=== PATIENT | female | born 1940 | race Caucasian/White ===

== ENCOUNTER 2017-11-05 16:15 | Inpatient (IN) | payer OTHER ==
[~2017-11-05] VITALS: Ht 152.4 cm; Wt 51.7 kg
--- NOTE | 2017-11-05 16:20 | NUR ---
NAZIA FROM DR TYLER'S OFFICE WITH CC OF RUQ ABDOMINAL PAIN X 3 DAYS . ATTACHED TO MONITOR , VSS , WILL CONTINUE TO MONITOR , URINE SAMPLE OBTAINED , LABELED AND SENT TO LAB ,
[2017-11-05 17:17] LABS: APPEARANCE,URINE Clear (CLEAR); BILIRUBIN,URINE Negative (NEGATIVE); BLOOD, URINE Trace-intact Ery/uL (NEGATIVE); COLOR,URINE Yellow (YELLOW); KETONES,URINE Negative (NEGATIVE); LEUKOCYTE ESTERASE ,URINE Moderate (NEGATIVE); NITRITE, URINE Negative (NEGATIVE); PROTEIN,URINE Negative (NEGATIVE); UGLUCOSE Negative (NEGATIVE); UROBILINOGEN,URINE 0.2 EU/dL (0.2)
[2017-11-05 17:53] LABS: BASOPHILS % (AUTO) 0.1 % (0.0-2.0); EOSINOPHILS % (AUTO) 1.3 % (0.0-6.0); HEMATOCRIT 39 % (33-45); HEMOGLOBIN 13.2 g/dL (11.5-14.8); LYMPHOCYTES # (AUTO) 1.4 /CMM (0.8-4.8); LYMPHOCYTES % (AUTO) 10.5 % (20.0-44.0); MEAN CORPUSCULAR HEMOGLOBIN 27 PG (26.0-33.0); MEAN CORPUSCULAR HGB CONC 33 g/dl (31.0-36.0); MEAN CORPUSCULAR VOLUME 82 fL (82-100); MONOCYTES # (AUTO) 0.9 /CMM (0.1-1.30); MONOCYTES % (AUTO) 6.7 % (2.0-12.0); NEUTROPHILS # (AUTO) 10.6 /CMM (1.8-8.9); NEUTROPHILS % (AUTO) 81.4 % (43.0-81.0); PLATELET COUNT (AUTO) 312 /CMM (150-450); RDW COEFFICIENT OF VARIATION 15.3 (11.5-15.0); RED BLOOD CELL COUNT(AUTO) 4.82 MIL/uL (4.0-5.2)
[2017-11-05 17:59] LABS: BACTERIA,URINE Few /HPF (None Seen); SQUAMOUS EPITHELIAL CELL,UR Few /HPF (None Seen); URINE AMORPHOUS URATE Few /HPF (None Seen)
[2017-11-05 18:00] LABS: MUCUS,URINE Few /LPF (None Seen)
[2017-11-05 18:05] LABS: INR 1.03 (0.85-1.15)
--- NOTE | 2017-11-05 18:37 | NUR ---
PAGED DR MARKUS TYLER
[2017-11-05 19:00] LABS: UREA NITROGEN, BLOOD 11 mg/dL (7-18)
[2017-11-05] MEDS ORDERED: PIPERACILLIN /TAZOBACTAM 3.375 G in IV D5W 50 ML IV ONE (19:00)
[2017-11-05 19:01] LABS: CHLORIDE 97 mmol/L (98-107); POTASSIUM 3.3 mmol/L (3.5-5.1); SODIUM SERUM 130 mmol/L (136-145)
[2017-11-05 19:02] LABS: BILIRUBIN,TOTAL 0.8 mg/dL (0.2-1.0); CALCIUM, SERUM 8.6 mg/dL (8.5-10.1); CARBON DIOXIDE 25 mmol/L (21-32); GLUCOSE 119 mg/dL (74-106)
[2017-11-05 19:03] LABS: ALANINE AMINOTRANSFERASE 17 U/L (12-78); ALBUMIN 3.2 g/dL (3.4-5.0); ALKALINE PHOSPHATASE 95 U/L (46-116); ASPARTATE AMINOTRANSFERASE 9 U/L (15-37); BILIRUBIN,DIRECT 0.2 mg/dL (0.0-0.2); LIPASE 103 U/L (73-393); TOTAL PROTEIN, SERUM 6.8 g/dL (6.4-8.2)
--- NOTE | 2017-11-05 19:07 | NUR ---
Patient is resting comfortably in bed with eyes closed. Easily aroused. VSS
--- NOTE | 2017-11-05 19:29 | NUR ---
CALLED NURSE SUP FOR MED SURG BED
[2017-11-05] MEDS ORDERED: POTASSIUM CHLORIDE 20 MEQ TAB.PRT.SR PO ONE ×2 (19:30→21:00)
[2017-11-05] MEDS ORDERED: ACETAMINOPHEN 650 MG/20.3 ML UDC PO PRN (19:30)
[2017-11-05] MEDS ORDERED: ONDANSETRON HCL/PF 4 MG/2 ML VIAL IV PRN (19:30)
--- NOTE | 2017-11-05 19:35 | NUR ---
[address] [facility]
--- NOTE | 2017-11-05 19:50 | NUR ---
MEDICATED PT ORDERED
[2017-11-05 20:00] VITALS: BP 110/66
[2017-11-05] MEDS ORDERED: ALPRAZOLAM 0.5 MG TABLET PO PRN (20:00)
--- NOTE | 2017-11-05 20:00 | NUR ---
RN NOTES RECEIVED PATIENT FROM ER VIA WHEELCHAIR FOR DX PYELONEPHRITIS. AO X 3, ABLE TO MAKE NEEDS KNOWN. NO ACUTE DISTRESS NOTED. DENIES ANY PAIN AT THIS TIME. AMBULATORY AND CONTINENT OF B AND B. IV SITE PATENT, INTACT; FLUSHED. SKIN INTACT. SAFETY REMINDERS GIVEN. ORIENTATION TO ROOM AND UNIT GIVEN TO PATIENT. PATIENT'S BED ON LOWEST SETTING WITH BILATERAL UPPER SIDE RAILS UP. CALL SANTAMARIA WITHIN EASY REACH. WILL CONTINUE TO MONITOR.
[2017-11-05] MEDS ORDERED: DIPH25CA83 PO (20:29)
[2017-11-05] MEDS ORDERED: AMLO1CAP8 PO (20:29)
[2017-11-05] MEDS ORDERED: DIAZ5TAB4 PO (20:29)
[2017-11-05] MEDS ORDERED: PROP15DR EACHEYE (20:29)
[2017-11-05 20:58] VITALS: BP 110/66
[2017-11-05] MEDS: DIAZEPAM 5 MG TABLET PO PRN (21:37)
--- NOTE | 2017-11-05 21:57 | NUR ---
RN NOTES PER SILVIA MANUEL TO ADD DIOVAN 5 MG PO Q12H PRN, BENADRYL 25 MG PO HS PRN, AND DC XANAX, NOTED AND CARRIED OUT.
[2017-11-05] MEDS: diphenhydrAMINE HCL ELIX 25 MG/10 ML UDC PO PRN (22:03)
[2017-11-05] MEDS: PIPERACILLIN /TAZOBACTAM 2.25 G in IV NS 0.9% 50 ML IV SCH (23:03)
[2017-11-06] MEDS: PIPERACILLIN /TAZOBACTAM 2.25 G in IV NS 0.9% 50 ML IV SCH ×4 (06:10→23:03)
[2017-11-06 06:26] LABS: BASOPHILS % (AUTO) 0.1 % (0.0-2.0); HEMATOCRIT 37 % (33-45); HEMOGLOBIN 12.6 g/dL (11.5-14.8); LYMPHOCYTES # (AUTO) 1.6 /CMM (0.8-4.8); MEAN CORPUSCULAR HEMOGLOBIN 28 PG (26.0-33.0); MEAN CORPUSCULAR HGB CONC 34 g/dl (31.0-36.0); MEAN CORPUSCULAR VOLUME 82 fL (82-100); MONOCYTES # (AUTO) 0.8 /CMM (0.1-1.30); MONOCYTES % (AUTO) 9.9 % (2.0-12.0); NEUTROPHILS # (AUTO) 5.4 /CMM (1.8-8.9); PLATELET COUNT (AUTO) 337 /CMM (150-450); RDW COEFFICIENT OF VARIATION 15.5 (11.5-15.0); RED BLOOD CELL COUNT(AUTO) 4.53 MIL/uL (4.0-5.2); WHITE BLOOD COUNT (AUTO) 8.2 K/uL (4.3-11.0)
--- NOTE | 2017-11-06 06:30 | NUR ---
RN NOTES PATIENT ASLEEP, EASILY AROUSABLE. RESPIRATIONS EVEN. NO SIGNS OF PAIN NOTED. DUE MEDS GIVEN WITH NO ASE NOTED. NEEDS ATTENDED. SAFETY PRECAUTIONS AND COMFORT MEASURES IN PLACE. WILL GIVE REPORT TO DAY SHIFT FOR CONTINUITY OF CARE.
[2017-11-06 06:43] LABS: ALANINE AMINOTRANSFERASE 18 U/L (12-78); ALBUMIN 2.8 g/dL (3.4-5.0); ALKALINE PHOSPHATASE 79 U/L (46-116); ASPARTATE AMINOTRANSFERASE 15 U/L (15-37); BILIRUBIN,TOTAL 0.7 mg/dL (0.2-1.0); CALCIUM, SERUM 8.2 mg/dL (8.5-10.1); CARBON DIOXIDE 22 mmol/L (21-32); CHLORIDE 105 mmol/L (98-107); CREATININE 0.9 mg/dL (0.6-1.3); GLUCOSE 98 mg/dL (74-106); POTASSIUM 4.1 mmol/L (3.5-5.1); SODIUM SERUM 138 mmol/L (136-145); TOTAL PROTEIN, SERUM 6.2 g/dL (6.4-8.2); UREA NITROGEN, BLOOD 11 mg/dL (7-18)
--- NOTE | 2017-11-06 07:42 | NUR ---
MS/RN Patient received Patient received from plant operator/shift supervisor. A/O X3, stating that pain has much improved since being admitted into the hospital. Safety measures in place, will continue to monitor and ensure safety.
[2017-11-06 08:00] VITALS: BP 97/46
[2017-11-06] MEDS: PANTOPRAZOLE 40 MG TABLET.DR PO SCH (08:04)
[2017-11-06] MEDS: AMLODIPINE BESYLATE 5 MG TABLET PO SCH (08:04)
[2017-11-06] MEDS: ASPIRIN 81 MG TAB.CHEW PO SCH (08:04)
[2017-11-06 08:18] VITALS: BP 97/46
--- NOTE | 2017-11-06 09:15 | NUR ---
MS/RN S/B Dr Otero Seen by Dr Otero - continue with IVAB, pain probably due to urinary tract infection, not gall stones. Discharge planning for tomorrow.
--- NOTE | 2017-11-06 11:15 | NUR ---
MS/RN S/B Dr Gonzalez Seen by Dr Gonzalez - PARAM scan ordered, if positive, will arrange for laparoscopic removal of gall bladder. NPO at this time, patient made aware.
--- NOTE | 2017-11-06 11:25 | NUR ---
MS/RN Zosyn Unable to scan zosyn, manual input barcode.
--- NOTE | 2017-11-06 11:39 | NUR ---
MS/RN Consent Patient consented for HIDA scan.
--- NOTE | 2017-11-06 15:18 | NUR ---
MS/RN HIDA Patient of floor at this time for HIDA scan, medical record with patient.
--- NOTE | 2017-11-06 19:30 | NUR ---
RN NOTES RECEIVED PATIENT UP IN BED AWAKE, AO X 3, ABLE TO MAKE NEEDS KNOWN. NO ACUTE DISTRESS NOTED. DENIES ANY PAIN AT THIS TIME. IV SITE PATENT, INTACT; FLUSHED. SAFETY REMINDERS GIVEN. ON LOW BED WITH BILATERAL UPPER SIDE RAILS UP. CALL SANTAMARIA WITHIN EASY REACH. WILL CONTINUE TO MONITOR.
[2017-11-06 20:00] VITALS: BP 123/66
[2017-11-06] MEDS: ENOXAPARIN SODIUM 40 MG/0.4 ML DISP.SYRIN SQ SCH (21:29)
[2017-11-06] MEDS: DIAZEPAM 5 MG TABLET PO PRN (21:29)
[2017-11-06] MEDS: diphenhydrAMINE HCL ELIX 25 MG/10 ML UDC PO PRN (23:03)
[2017-11-07] MEDS: PIPERACILLIN /TAZOBACTAM 2.25 G in IV NS 0.9% 50 ML IV SCH ×3 (06:30→17:31)
[2017-11-07 06:43] LABS: BASOPHILS % (AUTO) 0.4 % (0.0-2.0); HEMATOCRIT 38 % (33-45); HEMOGLOBIN 12.7 g/dL (11.5-14.8); LYMPHOCYTES # (AUTO) 1.7 /CMM (0.8-4.8); LYMPHOCYTES % (AUTO) 22.6 % (20.0-44.0); MEAN CORPUSCULAR HEMOGLOBIN 28 PG (26.0-33.0); MEAN CORPUSCULAR HGB CONC 33 g/dl (31.0-36.0); MEAN CORPUSCULAR VOLUME 83 fL (82-100); MONOCYTES # (AUTO) 0.8 /CMM (0.1-1.30); MONOCYTES % (AUTO) 10.4 % (2.0-12.0); NEUTROPHILS # (AUTO) 4.5 /CMM (1.8-8.9); NEUTROPHILS % (AUTO) 59.6 % (43.0-81.0); PLATELET COUNT (AUTO) 326 /CMM (150-450); RDW COEFFICIENT OF VARIATION 15.8 (11.5-15.0); RED BLOOD CELL COUNT(AUTO) 4.59 MIL/uL (4.0-5.2); WHITE BLOOD COUNT (AUTO) 7.6 K/uL (4.3-11.0)
--- NOTE | 2017-11-07 06:45 | NUR ---
RN NOTES PATIENT ASLEEP, EASILY AROUSABLE. RESPIRATIONS EVEN. NO SIGNS OF PAIN NOTED. DUE IV ATB GIVEN WITH NO ASE NOTED. NEEDS ATTENDED. SAFETY PRECAUTIONS AND COMFORT MEASURES IN PLACE. WILL GIVE REPORT TO DAY SHIFT FOR CONTINUITY OF CARE.
[2017-11-07 07:04] LABS: CALCIUM, SERUM 8.6 mg/dL (8.5-10.1); CARBON DIOXIDE 23 mmol/L (21-32); CHLORIDE 105 mmol/L (98-107); CREATININE 0.8 mg/dL (0.6-1.3); GLUCOSE 91 mg/dL (74-106); SODIUM SERUM 139 mmol/L (136-145); UREA NITROGEN, BLOOD 13 mg/dL (7-18)
--- NOTE | 2017-11-07 07:15 | NUR ---
MS RN OPENING NOTES RECEIVED PATIENT AWAKE IN BED IN NO ACUTE SIGNS OF DISTRESS. A/O X 4. ABLE TO MAKE NEEDS KNOWN. DENIES ANY PAIN OR DISCOMFORTS AT THIS TIME. IV SITE ON RIGHT HAND PATENT AND INTACT, FLUSHES WELL. SAFETY REMINDERS GIVEN. BED IN LOW/LOCKED POSITION WITH BILATERAL UPPER SIDE RAILS UP. CALL SANTAMARIA WITHIN EASY REACH. WILL CONTINUE TO MONITOR PT.
[2017-11-07 08:01] VITALS: BP 115/57
[2017-11-07] MEDS ORDERED: DIATR MEGLU/DIATRIZOATE SODIUM 30 ML BOTTLE (GASTROGRAPHIN) ONE (08:08)
--- NOTE | 2017-11-07 08:28 | NUR ---
RN NOTES PT FOR CT ABDOMEN/PELVIS WITHOUT CONTRAST. CALLED RADIOLOGY TO VERIFY TIME, PRINTING PLATE SETTER SAID TO PUT PT ON NPO BECAUSE THEY'RE GOING TO GIVE HER P.O. GASTROGRAFIN AND THEN WILL WAIT 2HRS TO DO THE CT. EXPLAINED PROCEDURE TO PT AND VERBALIZED UNDERSTANDING.
[2017-11-07] MEDS: AMLODIPINE BESYLATE 5 MG TABLET PO SCH (08:40)
[2017-11-07] MEDS: ASPIRIN 81 MG TAB.CHEW PO SCH (08:40)
[2017-11-07] MEDS: PANTOPRAZOLE 40 MG TABLET.DR PO SCH (08:40)
--- NOTE | 2017-11-07 08:41 | NUR ---
RN NOTES PT'S ALL PO MEDS NOT GIVEN THIS MORNING, PT PLACED ON NPO, PT IS FOR CT OF ABDOMEN /PELVIS. PT IS AWARE. WILL CONTINUE TO MONITOR.
--- NOTE | 2017-11-07 14:12 | NUR ---
RN NOTES PT'S IV ACCESS ON RIGHT HAND NOTED LEAKING, NEW IV ACCESS INSERTED TO LEFT HAND G#22 AND SECURED WITH TAPE.
--- NOTE | 2017-11-07 15:43 | NUR ---
RN NOTES DR LAY CAME TO UNIT, SPOKE TO PT REGARDING LAPAROSCOPIC CHOLECYSTECTOMY POSSIBLE OPEN SURGERY TOMORROW. PT VERBALIZED UNDERSTANDING AND AGREED WITH THE OPERATION. DR LAY WITH ORDERS TO OBTAIN CONSENT, PUT PT ON CLEAR LIQUID DIET NOW AND NPO POST MIDNIGHT. WILL CARRY OUT ORDERS
--- NOTE | 2017-11-07 15:47 | NUR ---
RN NOTES WENT TO PT TO OBTAIN CONSENT FOR TOMORROW'S LAP CHOLECYSTECTOMY POSSIBLE OPEN SURGERY BUT PT SAID THAT SHE WILL CALL HER DAUGHTER DEIRDRE AND THINK ABOUT THE OPERATION BEFORE SIGNING IT. SHE SAID THAT SHE WILL LET ME KNOW SOON SHE HAS DECIDED.
[2017-11-07 16:00] VITALS: BP 122/63
--- NOTE | 2017-11-07 17:02 | NUR ---
RN NOTES PATIENT DECIDED THAT SHE WILL HAVE THE SURGERY TOMORROW. CONSENT SIGNED AND FILED ON CHART. CALLED DR TYLER AND MADE AWARE.
--- NOTE | 2017-11-07 18:28 | NUR ---
MS RN CLOSING NOTES PATIENT AWAKE AND RESTING IN BED. A/O X 4, SAME ABLE TO MAKE NEEDS KNOWN. DENIES ANY PAIN ALL THROUGHOUT THE DAY. PATIENT FOR LAPAROSCOPIC CHOLECYSTECTOMY POSSIBLE OPEN SURGERY TOMORROW BY DR LAY, NPO POST MIDNIGHT WILL BE ENFORCED, PT IS AWARE. IV SITE ON LEFT HAND G#22 PATENT AND INTACT, FLUSHES WELL. ALL SAFETY MEASURES KEPT IN PLACE. BED IN LOW/LOCKED POSITION WITH BILATERAL UPPER SIDE RAILS UP. CALL SANTAMARIA AND BEDSIDE TABLE PLACED WITHIN EASY REACH OF PT. ALL NEEDS AND CARE ATTENDED WELL. WILL ENDORSE TO OPERATIONS CONSULTANT NURSE FOR CLIFFORD.
--- NOTE | 2017-11-07 19:40 | NUR ---
RN OPENING NOTES RECEIVED REPORT FROM DAYSHIFT RN VEL. FOUND Pt AWAKE, RESTING IN BED. NO S/S OF ACUTE DISTRESS OR SOB NOTED. Pt IS A/OX4, VERBAL, ABLE TO MAKE NEEDS KNOWN. IV ACCESS ON L HAND #22G, NS @TKO. CONSENT SIGNED FOR PROCEDURE TOMORROW. SAFETY MEASURES IN PLACE. BED LOW, LOCKED, HOB ELEVATED, SIDE RAILS UP, CALL LIGHT AND BEDSIDE TABLE WITHIN REACH. WILL CONTINUE TO MONITOR Pt THROUGHOUT THE NIGHT FOR SAFETY.
[2017-11-07 20:00] VITALS: BP 123/68
[2017-11-07] MEDS: diphenhydrAMINE HCL ELIX 25 MG/10 ML UDC PO PRN (21:24)
[2017-11-07] MEDS: DIAZEPAM 5 MG TABLET PO PRN (21:24)
[2017-11-07] MEDS: ENOXAPARIN SODIUM 40 MG/0.4 ML DISP.SYRIN SQ SCH (21:49)
[2017-11-08] VITALS (10 sets, daily range): BP systolic 124–162; BP diastolic 69–85
[2017-11-08] MEDS: PIPERACILLIN /TAZOBACTAM 2.25 G in IV NS 0.9% 50 ML IV SCH ×5 (00:50→23:14)
--- NOTE | 2017-11-08 06:49 | NUR ---
RN CLOSING NOTES NO SIGNIFICANT CHANGES IN Pt's CONDITION. Pt REMAINS STABLE AT THIS TIME. NO S/S OF ACUTE DISTRESS OR SOB NOTED DURING THE NIGHT. ALL NEEDS MET AND ATTENDED TO. ALL ORDERED MEDS GIVEN. Pt HAS BEEN NPO SINCE BENJIE HARE. GOING IN FOR LAPAROSCOPIC CHOLECYSTECTOMY AT 1000 TODAY. CONSENT FORM SIGNED AND CHECKLIST IN CHART. SAFETY MEASURES IN PLACE. WILL ENDORSE TO DAYSHIFT RN FOR Pt's CLIFFORD.
--- NOTE | 2017-11-08 07:24 | NUR ---
MS RN OPENING NOTES RECEIVED PATIENT IN BED AWAKE IN NO ACUTE SIGNS OF DISTRESS. HOB ELEVATED. A/O X 4. ABLE TO MAKE NEEDS KNOWN, DENIES ANY PAIN OR DISCOMFORTS AT THIS TIME. PT FOR LAPAROSCOPIC CHOLECYSTECTOMY POSSIBLE OPEN THIS MORNING, NPO MAINTAINED. IV ACCESS ON LEFT HAND G #22PATENT AND INTACT, FLUSHES WELL. SAFETY MEASURES IN PLACE. BED IN LOW/LOCKED POSITION WITH B/L UPPER SIDE RAILS UP. CALL SANTAMARIA WITHIN EASY REACH. WILL CONTINUE TO MONITOR PT
[2017-11-08] MEDS: PANTOPRAZOLE 40 MG TABLET.DR PO SCH (09:00)
[2017-11-08] MEDS: AMLODIPINE BESYLATE 5 MG TABLET PO SCH (09:00)
[2017-11-08] MEDS: ASPIRIN 81 MG TAB.CHEW PO SCH (09:00)
--- NOTE | 2017-11-08 10:01 | NUR ---
RN NOTES RECEIVED CALL FROM SURGERY THAT PT'S LAP HERON OPERATION WAS MOVED TO [phone], PT MADE AWARE.
[2017-11-08] MEDS ORDERED: ANESTHESIA TRAY IN PYXIS 1 EA TRAY MC ONE (10:03)
[2017-11-08] MEDS ORDERED: BUPIVACAINE MPF 0.75% 30 ML VIAL ONE (10:03)
--- NOTE | 2017-11-08 10:23 | NUR ---
RN NOTES TWO SURGERY NURSES CAME AND TRANSPORTED PT TO SURGERY JUST NOW VIA PT'S BED FOR LAPAROSCOPIC HERON POSSIBLE OPEN. PT IN NO ACUTE SIGNS OF DISTRESS.
[2017-11-08] MEDS ORDERED: KETOROLAC TROMETHAMINE INJ 30 MG/ML VIAL ONE (12:30)
[2017-11-08] MEDS ORDERED: ONDANSETRON HCL/PF 4 MG/2 ML VIAL IVP PRN (13:00)
--- NOTE | 2017-11-08 13:03 | NUR ---
RN NOTES PATIENT RETURNED FROM SURGERY S/P LAPAROSCOPIC CHOLECYSTECTOMY ALERT, DROWSY BUT VERBALLY RESPONSIVE. NO C/O PAIN AT THIS TIME. PT WITH TWO DRESSING AT LOWER MID ABDOMEN AND ONE AT RIGHT LOWER QUADRANT WITH TEVIN DRAIN IN PLACE DRAINING CLEAR REDDISH SECRETIONS. ALL THREE DRESSINGS CLEAN, DRY AND INTACT. V/S TAKEN; BP 160/75, P 76, R 18, T 98.2F. PT ON 02 VIA N/C AT 2LPM AT THIS TIME, BREATHING EVEN WITH SP02 OF 95%. ALL MD ORDERS CARRIED OUT. SAFETY MEASURES KEPT IN PLACE. HOB ELEVATED. BED PLACED ON LOW/LOCKED POSITION WITH UPPER SIDE-RAILS UP X2. CALL LIGHT WITHIN REACH. WILL CONTINUE TO MONITOR PT.
--- NOTE | 2017-11-08 13:34 | NUR ---
RN NOTES PATIENT COMPLAINING OF PAIN ON HER OPERATIVE SITES, PT HAS TYLENOL 650MG PO ORDER BUT DOESN'T WANT TO TAKE P.O. MEDS AT THIS TIME. CALLED DR TYLER WITH ORDER TO GIVE MORPHINE SULFATE 2MG IV Q 3HRS PRN. WILL CARRY OUT ORDER
[2017-11-08] MEDS: MORPHINE SULFATE INJ 2 MG/ML DISP.SYRIN IV PRN ×2 (13:58→18:28)
--- NOTE | 2017-11-08 14:04 | NUR ---
RN NOTES PRN MORPHINE SULFATE 2MG /ML IVP GIVEN FOR PAIN .
[2017-11-08] MEDS: IV PREMIX D5 1/2NS + KCL 1,000 ML IV PRN (14:06)
--- NOTE | 2017-11-08 19:20 | NUR ---
MS RN OPENING NOTES: ' RECEIVED PT IN BED AND IS SITTING UP IN BED. PT IS AWAKE AND IS A/OX4. PT ON ROOM AIR AND HAS O2 SUPP AT BEDSIDE. PT HAS IV ON L HAND #22G AND IS BEING INFUSED WITH D5 1/2 NS + KCL AT 75ML/HR. PT HAS TEVIN DRAIN ON RIGHT SIDE WITH SCALL LIGHT WITHIN PT'S REACH. BED KEPT IN LOW, LOCKED POSITION, AND SANGUINEOUS FLUID DRAINING. PT HAS 2 DRESSINGS ON LOWER MID ABDOMEN AND KEPT CLEAN AND DRY. PT ALSO HAS 1 DRESSING ON RIGHT LOWER QUADRANT. CALL LIGHT WITHIN PT'S REACH. BED KEPT IN LOW, LOCKED POSITION, AND SIDE RAILS X 2UP. WILL CONTINUE TO MONITOR PT.
--- NOTE | 2017-11-08 19:34 | NUR ---
MS RN CLOSING NOTES PATIENT AWAKE IN BED AND RESTING AT MODERATE HIGH BACKREST POSITION. A/O X 4, SAME ABLE TO MAKE NEEDS KNOWN. S/P LAPAROSCOPIC CHOLECYSTECTOMY TODAY BY DR LAY. ALL THREE DRESSINGS ON ABDOMEN C/D/I. TEVIN DRAIN ON RIGHT SIDE OF ABDOMEN IN PLACE WITH 35ML OF CLEAR BLOODY DRAINAGE COLLECTED. IV SITE ON LEFT HAND G#22 PATENT AND INTACT, IVF OF D5 1/2 NS WITH 20MEQ KCL INFUSING AT 75 ML/HR, NO S/S OF INFILTRATION NOTED. ALL SAFETY MEASURES KEPT IN PLACE. BED IN LOW/LOCKED POSITION WITH BILATERAL UPPER SIDE RAILS UP. CALL SANTAMARIA AND BEDSIDE TABLE PLACED WITHIN EASY REACH OF PT. ALL NEEDS AND CARE ATTENDED WELL. ENDORSED TO JEWELRY ESTIMATOR NURSE FOR CLIFFORD.
[2017-11-08] MEDS: ENOXAPARIN SODIUM 40 MG/0.4 ML DISP.SYRIN SQ SCH (20:12)
[2017-11-08] MEDS: DIAZEPAM 5 MG TABLET PO PRN (21:45)
[2017-11-08] MEDS: diphenhydrAMINE HCL ELIX 25 MG/10 ML UDC PO PRN (21:45)
--- NOTE | 2017-11-08 21:46 | NUR ---
MS RN NOTES: PT REQUESTING FOR BENADRYL AND VALIUM. PT WAS ADMINISTERED BENADRYL 25MG PO AND VALIUM 5MG PO. WILL CONTINUE TO MONITOR.
[2017-11-09 03:15] VITALS: BP 129/67
[2017-11-09] MEDS: MORPHINE SULFATE INJ 2 MG/ML DISP.SYRIN IV PRN ×3 (03:27→18:43)
[2017-11-09] MEDS: IV PREMIX D5 1/2NS + KCL 1,000 ML IV PRN (05:06)
[2017-11-09] MEDS: PIPERACILLIN /TAZOBACTAM 2.25 G in IV NS 0.9% 50 ML IV SCH ×3 (05:06→17:16)
--- NOTE | 2017-11-09 06:43 | NUR ---
MS RN CLOSING NOTES: ALL NEEDS WERE ATTENDED AND ANTICIPATED FOR. PT KEPT CLEAN, DRY, AND COMFORTABLE. PT ON ROOM AIR AND TOLERATING WELL. PT RESTING IN BED AT THIS TIME. PT HAS IV ON L HAND #22G AND IS BEING INFUSED WITH D5 1/2 NS +20 MEQ KCL AT 75ML/HR. BED ALARM ACTIVATED. 2 DRESSINGS ON MID LOWER AB INTACT. PT ALSO HAS ANOTHER DRESSING ON RIGHT LOWER QUADRANT KEPT INTACT. PT HAS TEVIN DRAIN AND IS DRAINING SANGUINEOUS FLUID. OUTPUT WAS 25ML. CALL LIGHT WITHIN PT'S REACH. BED KEPT IN LOW, LOCKED POSITION, AND SIDE RAILS X 3. WILL ENDORSE TO AM NURSE FOR CLIFFORD.
--- NOTE | 2017-11-09 07:40 | NUR ---
RN NOTES PATIENT AOX4, NO DISTRESS NOTED, DENIES PAIN OR DISCOMFORT, TEVIN DRAIN INTACT AND DRAINING WITH AN OUTPUT OF 5ML OF SANGUINEOUS DRAINAGE AT THIS TIME. NEEDS ATTENDED, KEPT COMFORTABLE, ASSISTED TO RESTROOM. CALL LIGHT WITHIN REACH, WILL CONTINUE TO MONITOR.
[2017-11-09 08:00] VITALS: BP 153/77
[2017-11-09 08:15] LABS: BASOPHILS % (AUTO) 0.2 % (0.0-2.0); EOSINOPHILS % (AUTO) 0.4 % (0.0-6.0); HEMATOCRIT 38 % (33-45); HEMOGLOBIN 12.8 g/dL (11.5-14.8); LYMPHOCYTES # (AUTO) 1.8 /CMM (0.8-4.8); LYMPHOCYTES % (AUTO) 16.9 % (20.0-44.0); MEAN CORPUSCULAR HEMOGLOBIN 28 PG (26.0-33.0); MEAN CORPUSCULAR HGB CONC 34 g/dl (31.0-36.0); MEAN CORPUSCULAR VOLUME 83 fL (82-100); MONOCYTES % (AUTO) 9.5 % (2.0-12.0); NEUTROPHILS # (AUTO) 7.9 /CMM (1.8-8.9); PLATELET COUNT (AUTO) 350 /CMM (150-450); RDW COEFFICIENT OF VARIATION 15.3 (11.5-15.0); WHITE BLOOD COUNT (AUTO) 10.9 K/uL (4.3-11.0)
[2017-11-09] MEDS: PANTOPRAZOLE 40 MG TABLET.DR PO SCH (08:22)
[2017-11-09] MEDS: ASPIRIN 81 MG TAB.CHEW PO SCH (08:22)
[2017-11-09] MEDS: AMLODIPINE BESYLATE 5 MG TABLET PO SCH (08:23)
[2017-11-09 08:25] LABS: CALCIUM, SERUM 8.6 mg/dL (8.5-10.1); CARBON DIOXIDE 24 mmol/L (21-32); CHLORIDE 105 mmol/L (98-107); GLUCOSE 112 mg/dL (74-106); POTASSIUM 4.2 mmol/L (3.5-5.1); SODIUM SERUM 139 mmol/L (136-145); UREA NITROGEN, BLOOD 10 mg/dL (7-18)
[2017-11-09 16:00] VITALS: BP 111/66
--- NOTE | 2017-11-09 19:45 | NUR ---
MS RN NOTES RECEIVED ON BED A/O X4,BREATHING REGULAR,S/O LAP HERON 11/[address] LAY,WITH X3 SURGICAL SMALL ABDOMINAL INCISION COVERED WITH BAND AID,NO BLEEDING NOTED.PAIN TOLERABLE AT THE MOMENT,WAS JUST MEDICATED WITH MORPHINE NOT LONG TIME AGO.CLAIMED COLD ON HER FOOT,WARM BLANKET PROVIDED.SALINE LOCK RFA INTACT AND PATENT.CALL LIGHT IN REACH,NEEDS ANTICIPATED.
[2017-11-09 20:00] VITALS: BP 127/65
[2017-11-09] MEDS: ENOXAPARIN SODIUM 40 MG/0.4 ML DISP.SYRIN SQ SCH (21:10)
[2017-11-09] MEDS: diphenhydrAMINE HCL ELIX 25 MG/10 ML UDC PO PRN (21:16)
[2017-11-09] MEDS: DIAZEPAM 5 MG TABLET PO PRN (21:16)
--- NOTE | 2017-11-09 21:16 | NUR ---
MS RN NOTES C/O ANXIETY AND ITCH,MEDICATED WITH VALIUM 5MG PO TAB AND BENADRYL 25MG IN LIQUID FORM PER PATIENT REQUEST ORDERED.
--- NOTE | 2017-11-10 06:15 | NUR ---
MS RN NOTES SLEPT WELL WITH BENADRYL AND VALIUM.PAIN TOLERABLE.IV ABX TOLERATED WELL.NO N/V D NOTED.POSSIBLE DISCHARGE TODAY PER DR LAY.TEVIN DRAINS 5ML SEROUS.CALL LIGHT IN REACH,NEEDS ATTENDED.WILL ENDORSE TO MORNING NURSE.
[2017-11-10] MEDS: PIPERACILLIN /TAZOBACTAM 2.25 G in IV NS 0.9% 50 ML IV SCH ×4 (06:20→12:16)
[2017-11-10 07:04] LABS: BASOPHILS % (AUTO) 0.3 % (0.0-2.0); EOSINOPHILS % (AUTO) 5.6 % (0.0-6.0); HEMATOCRIT 39 % (33-45); HEMOGLOBIN 12.9 g/dL (11.5-14.8); LYMPHOCYTES # (AUTO) 1.8 /CMM (0.8-4.8); LYMPHOCYTES % (AUTO) 22.7 % (20.0-44.0); MEAN CORPUSCULAR HEMOGLOBIN 27 PG (26.0-33.0); MEAN CORPUSCULAR HGB CONC 33 g/dl (31.0-36.0); MEAN CORPUSCULAR VOLUME 83 fL (82-100); MONOCYTES # (AUTO) 0.8 /CMM (0.1-1.30); MONOCYTES % (AUTO) 9.7 % (2.0-12.0); NEUTROPHILS # (AUTO) 4.9 /CMM (1.8-8.9); NEUTROPHILS % (AUTO) 61.7 % (43.0-81.0); PLATELET COUNT (AUTO) 347 /CMM (150-450); RDW COEFFICIENT OF VARIATION 15.3 (11.5-15.0); RED BLOOD CELL COUNT(AUTO) 4.76 MIL/uL (4.0-5.2)
[2017-11-10 07:10] LABS: ALANINE AMINOTRANSFERASE 51 U/L (12-78); ALBUMIN 2.6 g/dL (3.4-5.0); ALKALINE PHOSPHATASE 73 U/L (46-116); ASPARTATE AMINOTRANSFERASE 53 U/L (15-37); BILIRUBIN,TOTAL 0.7 mg/dL (0.2-1.0); CALCIUM, SERUM 8.2 mg/dL (8.5-10.1); CARBON DIOXIDE 26 mmol/L (21-32); CHLORIDE 104 mmol/L (98-107); CREATININE 0.9 mg/dL (0.6-1.3); GLUCOSE 97 mg/dL (74-106); POTASSIUM 3.9 mmol/L (3.5-5.1); SODIUM SERUM 137 mmol/L (136-145); UREA NITROGEN, BLOOD 9 mg/dL (7-18)
[2017-11-10] MEDS: MORPHINE SULFATE INJ 2 MG/ML DISP.SYRIN IV PRN ×2 (07:49→13:27)
[2017-11-10 08:00] VITALS: BP 123/70
[2017-11-10] MEDS: PANTOPRAZOLE 40 MG TABLET.DR PO SCH (08:10)
[2017-11-10 08:11] VITALS: BP 123/70
[2017-11-10] MEDS: AMLODIPINE BESYLATE 5 MG TABLET PO SCH (08:11)
[2017-11-10] MEDS: ASPIRIN 81 MG TAB.CHEW PO SCH (08:11)
--- NOTE | 2017-11-10 08:15 | NUR ---
MS RN notes Patient in bed, A/O x4 breathing on room air with no SOB. IVC in RFA patent and intact, flushes well. Abdomen incision, dressing in place, denies pain. Call light within reach. Will cont to monitor.
--- NOTE | 2017-11-10 13:33 | NUR ---
Visited pt today. S/p lap cholecystectomy on 11/08/17. Pt reports fair appetite. Per nursing, 50-75% po intake post op. Noted diarrhea, C Diff came back negative . Provided diet education on low fat diet to pt with handouts. Pt receptive to diet education and verbalized understanding. Pt appreciated the visit and diet education. Noted MD order to discharge pt home today.
--- NOTE | 2017-11-10 14:39 | NUR ---
MS RN discharged Patient has been cleared for discharge home by . VS stable, Abdomen lat side TEVIN removed by Dr. Gonzalez/Surgeon at 1130 Am, patient tolerated procedure well, site covered with dry dressing. Discharge instruction given to patient, instructed to follow up with Dr. Gonzalez in week for ciera removal, patient verbalized understanding. Prescription and personal belongings given to patient upon discharge. Patient left hosp in stable condition via private car accompanied by elli/friend.
== END 2017-11-10 15:32 | disposition home health service (06) | DRG 418 ==
LOC: ER 16:18 → MEDSG2 19:50
PROVIDERS: ADMIT Internal Medicine; ATTEND Internal Medicine
PROC: 0FT44ZZ Resection of Gallbladder, Percutaneous Endoscopic Approach (ICD-10-PCS; principal; 2017-11-08 10:00)
DX: K80.00 Calculus of gallbladder with acute cholecystitis without obstruction (principal); E44.1 Mild protein-calorie malnutrition; N39.0 Urinary tract infection, site not specified; I10 Essential (primary) hypertension; F41.9 Anxiety disorder, unspecified; Z68.22 Body mass index [BMI] 22.0-22.9, adult; R19.09 Other intra-abdominal and pelvic swelling, mass and lump; R78.89 Finding of other specified substances, not normally found in blood
CPT/HCPCS: 36415; 71045-TC; 76705-TC; 78226; 80048-TC; 80053-TC; 80076-TC; 81000-TC; 83690-TC; 85025-TC; 85730-TC; 86304; 86850-TC; 87081-TC; 87086-TC; 88304-TC; A4216; A4606; A6402; A9537; J1650; J1885; J2270; J2543; J3490; J7050; J7060; Q0163; Q9963; Z7610

== ENCOUNTER 2017-11-14 16:14 | Emergency (ER) | payer MEDICARE, OTHER ==
[~2017-11-14] VITALS: Ht 152.4 cm; Wt 54.4 kg
[~2017-11-14 16:14] MED LIST: AMLO1CAP8 PO; DIAZ5TAB4 PO; DIPH25CA83 PO; PROP15DR EACHEYE
--- NOTE | 2017-11-14 16:30 | NUR ---
PT AMBULATORY TO ER BED 08. PT STATES BEEN NOTICING BLACK TARRY STOOL 3 DAYS POST CHOLECYSTECTOMY 5 DAYS AGO. DENIES PAIN. ALSO C/O DIARRHEA. GOWNED AND PLACED ON MONITOR. VSS. AWAITING MD [place].
--- NOTE | 2017-11-14 16:55 | NUR ---
DR PLATT AT BEDSIDE FOR EVAL.
--- NOTE | 2017-11-14 17:13 | NUR ---
MANAGER BEAUTY AT BEDSIDE FOR BLOOD DRAW.
[2017-11-14 17:21] LABS: BASOPHILS % (AUTO) 0.4 % (0.0-2.0); EOSINOPHILS % (AUTO) 8.5 % (0.0-6.0); HEMATOCRIT 40 % (33-45); HEMOGLOBIN 13.4 g/dL (11.5-14.8); LYMPHOCYTES % (AUTO) 21.7 % (20.0-44.0); MEAN CORPUSCULAR HEMOGLOBIN 26 PG (26.0-33.0); MEAN CORPUSCULAR HGB CONC 33 g/dl (31.0-36.0); MEAN CORPUSCULAR VOLUME 79 fL (82-100); MONOCYTES # (AUTO) 0.5 /CMM (0.1-1.30); MONOCYTES % (AUTO) 5.9 % (2.0-12.0); NEUTROPHILS % (AUTO) 63.5 % (43.0-81.0); PLATELET COUNT (AUTO) 449 /CMM (150-450); RDW COEFFICIENT OF VARIATION 13.9 (11.5-15.0); RED BLOOD CELL COUNT(AUTO) 5.09 MIL/uL (4.0-5.2); WHITE BLOOD COUNT (AUTO) 9.3 K/uL (4.3-11.0)
[2017-11-14 20:37] VITALS: BP 112/66
--- NOTE | 2017-11-14 20:37 | NUR ---
Patient discharged to home in stable condition. Written and verbal after care instructions given. Patient verbalizes understanding of instruction.
== END 2017-11-14 20:38 | disposition home or self-care (01) ==
LOC: ER 16:17
DX: K92.1 Melena (principal); I10 Essential (primary) hypertension; Z90.49 Acquired absence of other specified parts of digestive tract; Z60.2 Problems related to living alone
CPT/HCPCS: 36415; 85025-TC; A4606; Z7610

== ENCOUNTER 2020-03-11 08:51 | Emergency (ER) | payer OTHER ==
[~2020-03-11] VITALS: Ht 152.4 cm; Wt 54.4 kg
[~2020-03-11 08:51] MED LIST changes: -AMLO1CAP8 PO; +AMLO1CAP92 PO
--- NOTE | 2020-03-11 09:00 | NUR ---
Patient came in to the er c/o diarrhea x 6 days, on Loperamide but not helping. On room air, breathing evenly and unlabored. Kept comfortable, will continue to monitor accordingly.
--- NOTE | 2020-03-11 09:30 | NUR ---
urine collected. stool specimen collected. blood draw done. sent to lab
[2020-03-11 09:36] LABS: BASOPHILS % (AUTO) 0.7 % (0.0-2.0); EOSINOPHILS % (AUTO) 3.2 % (0.0-6.0); HEMATOCRIT 40 % (33-45); HEMOGLOBIN 13.8 g/dL (11.5-14.8); LYMPHOCYTES # (AUTO) 2.2 /CMM (0.8-4.8); LYMPHOCYTES % (AUTO) 36.3 % (20.0-44.0); MEAN CORPUSCULAR HGB CONC 34 g/dl (31.0-36.0); MEAN CORPUSCULAR VOLUME 82 fL (82-100); MONOCYTES # (AUTO) 0.5 /CMM (0.1-1.30); MONOCYTES % (AUTO) 8.4 % (2.0-12.0); NEUTROPHILS # (AUTO) 3.1 /CMM (1.8-8.9); NEUTROPHILS % (AUTO) 51.4 % (43.0-81.0); PLATELET COUNT (AUTO) 230 /CMM (150-450); RED BLOOD CELL COUNT(AUTO) 4.93 MIL/uL (4.0-5.2)
[2020-03-11 09:38] LABS: BILIRUBIN,URINE NEGATIVE (NEGATIVE); BLOOD, URINE NEGATIVE Ery/uL (NEGATIVE); COLOR,URINE YELLOW (YELLOW); LEUKOCYTE ESTERASE ,URINE MODERATE (NEGATIVE); NITRITE, URINE NEGATIVE (NEGATIVE); PROTEIN,URINE NEGATIVE (NEGATIVE); UGLUCOSE NEGATIVE (NEGATIVE); UROBILINOGEN,URINE 0.2 EU/dL (0.2)
[2020-03-11 10:00] LABS: CALCIUM, SERUM 8.8 mg/dL (8.5-10.1); CREATININE 0.9 mg/dL (0.6-1.3); POTASSIUM 3.8 mmol/L (3.5-5.1)
[2020-03-11 10:06] LABS: ALBUMIN 3.6 g/dL (3.4-5.0); BILIRUBIN,DIRECT 0.2 mg/dL (0.0-0.2); BILIRUBIN,TOTAL 0.7 mg/dL (0.2-1.0); TOTAL PROTEIN, SERUM 6.1 g/dL (6.4-8.2)
[2020-03-11 10:07] LABS: BACTERIA,URINE Rare /HPF (None Seen); RBC,URINE 0-2 /HPF (0-2); SQUAMOUS EPITHELIAL CELL,UR Few /HPF (None Seen)
[2020-03-11 10:40] VITALS: BP 145/77
--- NOTE | 2020-03-11 10:40 | NUR ---
Patient discharged to home in stable condition. Written and verbal after care instructions given. Patient verbalizes understanding of instruction.
== END 2020-03-11 10:41 | disposition home or self-care (01) ==
LOC: ER 08:54
DX: R19.7 Diarrhea, unspecified (principal); I10 Essential (primary) hypertension; Z90.49 Acquired absence of other specified parts of digestive tract; Z60.2 Problems related to living alone; Z79.899 Other long term (current) drug therapy
CPT/HCPCS: 36415; 80048-TC; 80076-TC; 81001; 83690-TC; 85025-TC

== ENCOUNTER 2020-05-25 08:51 | Emergency (ER) | payer OTHER ==
[~2020-05-25] VITALS: Ht 152.4 cm; Wt 54.4 kg
--- NOTE | 2020-05-25 08:51 | NUR ---
PT BIB SELF C/O ABDOMINAL PAIN/HERNIA FOR 1 MONTH. PT IS AAOX4, NOT IN RESPIRATORY DISTRESS, HOOKED TO IRON PELLET TESTER, KEPT RESTED AND COMFORTABLE. WILL CONTINUE TO MONITOR.
--- NOTE | 2020-05-25 09:09 | NUR ---
URINE SPECIMEN COLLECTED AND SENT TO LAB.
--- NOTE | 2020-05-25 09:16 | NUR ---
AT BEDSIDE FOR EVAL.
--- NOTE | 2020-05-25 09:30 | NUR ---
IV LINE ESTABLISHED BLOOD DRAWN AND SENT TO LAB.
[2020-05-25 09:39] LABS: BASOPHILS # (AUTO) 0.1 /CMM (0.0-0.2); BASOPHILS % (AUTO) 0.8 % (0.0-2.0); EOSINOPHILS % (AUTO) 3.5 % (0.0-6.0); HEMATOCRIT 43 % (33-45); HEMOGLOBIN 14.5 g/dL (11.5-14.8); LYMPHOCYTES # (AUTO) 2.1 /CMM (0.8-4.8); MEAN CORPUSCULAR HGB CONC 34 g/dl (31.0-36.0); MEAN CORPUSCULAR VOLUME 81 fL (82-100); MONOCYTES # (AUTO) 0.5 /CMM (0.1-1.30); MONOCYTES % (AUTO) 7.7 % (2.0-12.0); PLATELET COUNT (AUTO) 237 /CMM (150-450); RED BLOOD CELL COUNT(AUTO) 5.26 MIL/uL (4.0-5.2); WHITE BLOOD COUNT (AUTO) 6.9 K/uL (4.3-11.0)
[2020-05-25 09:47] LABS: CALCIUM, SERUM 8.9 mg/dL (8.5-10.1); CARBON DIOXIDE 29 mmol/L (21-32); CHLORIDE 107 mmol/L (98-107); GLUCOSE 91 mg/dL (74-106); SODIUM SERUM 142 mmol/L (136-145); UREA NITROGEN, BLOOD 23 mg/dL (7-18)
[2020-05-25 09:53] LABS: ALANINE AMINOTRANSFERASE 19 U/L (12-78); ALBUMIN 3.6 g/dL (3.4-5.0); ALKALINE PHOSPHATASE 71 U/L (46-116); ASPARTATE AMINOTRANSFERASE 17 U/L (15-37); BILIRUBIN,DIRECT 0.1 mg/dL (0.0-0.2); BILIRUBIN,TOTAL 0.7 mg/dL (0.2-1.0); LIPASE 149 U/L (73-393); TOTAL PROTEIN, SERUM 6.5 g/dL (6.4-8.2)
[2020-05-25] MEDS ORDERED: IV NS 0.9% 250 ML IV ONE (10:06)
[2020-05-25] MEDS ORDERED: IOHEXOL-300 100 ML VIAL IV ONE (10:06)
--- NOTE | 2020-05-25 11:29 | NUR ---
IV removed. Catheter intact and site benign. Pressure and 4x4 applied to site. No bleeding noted. Patient discharged to home in stable condition. Written and verbal after care instructions given. Patient verbalizes understanding of instruction.
[2020-05-25 11:30] VITALS: BP 135/71
== END 2020-05-25 11:30 | disposition home or self-care (01) ==
LOC: ER 08:57
DX: K43.9 Ventral hernia without obstruction or gangrene (principal); I10 Essential (primary) hypertension; Z90.49 Acquired absence of other specified parts of digestive tract; Z60.2 Problems related to living alone; Z79.899 Other long term (current) drug therapy
CPT/HCPCS: 36415; 74177; 80048; 80076; 83690; 84484; 85025; 99285; J7050; Q9967

== ENCOUNTER 2022-03-13 19:13 | Inpatient (IN) | payer OTHER ==
[~2022-03-13] VITALS: Ht 160 cm; Wt 67.1 kg
--- NOTE | 2022-03-13 19:46 | NUR ---
[id number] FROM HOME C/O ABD PAIN X 3DAYS HX HERNIA. PT IS A/O X 4, RR EVEN AND UNLABORED NO SOB NOTED, VSS. WILL CONTINUE TO MONITOR.
--- NOTE | 2022-03-13 20:00 | NUR ---
EMT AT BEDSIDE FOR EKG
[2022-03-13 20:07] LABS: BASOPHILS % (AUTO) 0.4 % (0.0-2.0); EOSINOPHILS % (AUTO) 2.2 % (0.0-6.0); HEMATOCRIT 40 % (33-45); HEMOGLOBIN 13.2 g/dL (11.5-14.8); LYMPHOCYTES % (AUTO) 25.5 % (20.0-44.0); MEAN CORPUSCULAR HGB CONC 33 g/dl (31.0-36.0); MEAN CORPUSCULAR VOLUME 81 fL (82-100); MONOCYTES # (AUTO) 0.6 K/uL (0.1-1.30); MONOCYTES % (AUTO) 7.6 % (2.0-12.0); NEUTROPHILS % (AUTO) 64.3 % (43.0-81.0); PLATELET COUNT (AUTO) 218 K/uL (150-450); RED BLOOD CELL COUNT(AUTO) 4.92 MIL/uL (4.0-5.2); WHITE BLOOD COUNT (AUTO) 7.8 K/uL (4.3-11.0)
--- NOTE | 2022-03-13 20:08 | NUR ---
20G IV STARTED AT . BLOOD SENT TO LAB
[2022-03-13 20:24] LABS: ALANINE AMINOTRANSFERASE 21 U/L (12-78); ALBUMIN 4.1 g/dL (3.4-5.0); ALKALINE PHOSPHATASE 72 U/L (46-116); ASPARTATE AMINOTRANSFERASE 20 U/L (15-37); BILIRUBIN,DIRECT 0.2 mg/dL (0.0-0.2); CALCIUM, SERUM 9.5 mg/dL (8.5-10.1); CARBON DIOXIDE 26 mmol/L (21-32); CHLORIDE 105 mmol/L (98-107); GLUCOSE 109 mg/dL (74-106); LIPASE 88 U/L (73-393); POTASSIUM 3.9 mmol/L (3.5-5.1); SODIUM SERUM 139 mmol/L (136-145); UREA NITROGEN, BLOOD 21 mg/dL (7-18)
[2022-03-13 21:02] LABS: BILIRUBIN,URINE NEGATIVE (NEGATIVE); COLOR,URINE YELLOW (YELLOW); LEUKOCYTE ESTERASE ,URINE 1+ (NEGATIVE); NITRITE, URINE NEGATIVE (NEGATIVE); PH,URINE 5.5 (5.0-8.0); PROTEIN,URINE NEGATIVE (NEGATIVE); UGLUCOSE NEGATIVE (NEGATIVE); UROBILINOGEN,URINE 0.2 EU/dL (0.2)
[2022-03-13 21:08] LABS: BACTERIA,URINE 1+ /HPF (None Seen); RBC,URINE 0-2 /HPF (0-2); SQUAMOUS EPITHELIAL CELL,UR 0-2 /HPF (None Seen)
--- NOTE | 2022-03-13 21:34 | NUR ---
DEYSI COLLECTED AND SENT TO LAB
[2022-03-13] MEDS ORDERED: PIPERACILLIN /TAZOBACTAM 3.375 G in IV D5W 50 ML IV ONE (22:00)
[2022-03-13] MEDS ORDERED: PIPERACILLIN /TAZOBACTAM 3.375 G VIAL IV ONE (22:43)
--- NOTE | 2022-03-14 04:48 | NUR ---
pt sleeping comofrtably breathing unlabored.
[2022-03-14] MEDS ORDERED: IV NS 0.9% 1,000 ML BAG IV ONE (05:00)
[2022-03-14] MEDS ORDERED: PIPERACILLIN /TAZOBACTAM 3.375 G VIAL IV ONE (05:03)
[2022-03-14] MEDS ORDERED: PIPERACILLIN /TAZOBACTAM 3.375 G in IV D5W 50 ML IV SCH (06:00)
[2022-03-14] MEDS ORDERED: TRAZ-182 PO (06:18)
[2022-03-14] MEDS ORDERED: ROPI0.255 PO (06:18)
[2022-03-14] MEDS ORDERED: BENA20TA9 PO ×2 (06:18→11:30)
[2022-03-14] MEDS ORDERED: MAGN400T8 PO (06:18)
[2022-03-14] MEDS ORDERED: MELO-105 PO (06:18)
[2022-03-14 07:13] LABS: BASOPHILS % (AUTO) 0.4 % (0.0-2.0); EOSINOPHILS % (AUTO) 3.8 % (0.0-6.0); HEMATOCRIT 34 % (33-45); HEMOGLOBIN 11.7 g/dL (11.5-14.8); MEAN CORPUSCULAR HGB CONC 34 g/dl (31.0-36.0); MEAN CORPUSCULAR VOLUME 82 fL (82-100); MONOCYTES # (AUTO) 0.5 K/uL (0.1-1.30); MONOCYTES % (AUTO) 9.4 % (2.0-12.0); NEUTROPHILS # (AUTO) 2.5 K/uL (1.8-8.9); NEUTROPHILS % (AUTO) 47.4 % (43.0-81.0); PLATELET COUNT (AUTO) 196 K/uL (150-450); RED BLOOD CELL COUNT(AUTO) 4.18 MIL/uL (4.0-5.2); WHITE BLOOD COUNT (AUTO) 5.2 K/uL (4.3-11.0)
--- NOTE | 2022-03-14 07:15 | NUR ---
RECEIVED PT FROM [facility] FOR MEDICALE FLOOR BED
[2022-03-14 07:17] LABS: CALCIUM, SERUM 8.1 mg/dL (8.5-10.1); CREATININE 0.9 mg/dL (0.6-1.3); POTASSIUM 3.7 mmol/L (3.5-5.1)
--- NOTE | 2022-03-14 07:30 | NUR ---
MS TEJEDAOIL PIPE INSPECTOR NOTES RECEIVED PATIENT FRO ER ENDORSED BY NIKHIL MIKE VIA STRETCHER. PATIENT IS AWAKE AND A/O X4. ON ROOM AIR TOLERATING WELL. NO SOB NOTED. NOT IN DISTRESS. WITH COMPLAINTS OF TOLERABLE PAIN IN THE ABDOMEN AT THE SCALE OF 3/10. WITH IV ACCESS AT RIGHT FOREARM G20 SALINE LOCKED, PATENT AND INTACT. SKIN IS INTACT. SAFETY MEASURES IN PLACED. CALL LIGHT WITHIN REACH. BED ON LOWEST LOCKED POSITION, SIDE RAILS UP X2. WILL CONTINUE TO MONITOR. Addendum: 03/14/22 at 1537 by PERNELL SARABIA RN ERROR.
--- NOTE | 2022-03-14 07:35 | NUR ---
GOT BED 328-2
--- NOTE | 2022-03-14 08:48 | NUR ---
REPORT GIVEN TO CHARITO TEJEDA
--- NOTE | 2022-03-14 08:57 | NUR ---
MOVED TO INPATIENT ROOM SAFELY
[2022-03-14] MEDS ORDERED: ONDANSETRON HCL/PF 4 MG/2 ML VIAL IVP PRN (09:00)
[2022-03-14] MEDS ORDERED: HYDROCODONE/APAP 5/325MG TABLET PO PRN (09:00)
[2022-03-14] MEDS ORDERED: ACETAMINOPHEN 325 MG TABLET PO PRN (09:00)
[2022-03-14] MEDS ORDERED: HYDROMORPHONE 1 MG/1 ML DISP.SYRIN IV PRN (09:00)
--- NOTE | 2022-03-14 09:05 | NUR ---
MS SPECIAL FORCES COMMUNICATIONS SERGEANT NOTES RECEIVED PATIENT FRO ER ENDORSED BY NIKHIL MIKE VIA STRETCHER. PATIENT IS AWAKE AND A/O X4. ON ROOM AIR TOLERATING WELL. NO SOB NOTED. NOT IN DISTRESS. WITH COMPLAINTS OF TOLERABLE PAIN IN THE ABDOMEN AT THE SCALE OF 3/10. WITH IV ACCESS AT RIGHT FOREARM G20 SALINE LOCKED, PATENT AND INTACT. SKIN IS INTACT. SAFETY MEASURES IN PLACED. CALL LIGHT WITHIN REACH. BED ON LOWEST LOCKED POSITION, SIDE RAILS UP X2. WILL CONTINUE TO MONITOR.
[2022-03-14] MEDS: MELOXICAM 7.5 MG TABLET PO SCH (10:22)
[2022-03-14] MEDS: MAGNESIUM OXIDE 400 MG TABLET PO SCH (10:23)
[2022-03-14] MEDS: PANTOPRAZOLE 40 MG TABLET.DR PO SCH (10:27)
[2022-03-14] MEDS: IV D5/ NS 10 MEQ KCL 1000 ML IV SCH ×4 (10:47→23:30)
[2022-03-14 11:13] VITALS: BP 154/68
[2022-03-14] MEDS: PIPERACILLIN /TAZOBACTAM 3.375 G in IV D5W 100 ML IV SCH ×2 (12:46→21:05)
[2022-03-14 13:29] VITALS: BP 154/68
[2022-03-14] MEDS: BENAZEPRIL HCL 10 MG TABLET PO SCH (16:05)
[2022-03-14 16:51] VITALS: BP_SYST 130; BP_SYST 149; BP_DIAS 62; BP_DIAS 68
--- NOTE | 2022-03-14 18:40 | NUR ---
MS RN CLOSING NOTES PATIENT ON BED RESTING AND A/O X4. ON ROOM AIR TOLERATING WELL. NO SOB NOTED. NOT IN DISTRESS. WITH COMPLAINTS OF PAIN IN THE ABDOMEN AT THE SCALE OF 5/10. WITH IV ACCESS AT RIGHT FOREARM G20 SALINE LOCKED, PATENT AND INTACT. DUE MEDS GIVEN. SAFETY MEASURES IN PLACED. CALL LIGHT WITHIN REACH. BED ON LOWEST LOCKED POSITION, SIDE RAILS UP X2. WILL ENDORSE TO NEXT SHIFT FOR CLIFFORD.
[2022-03-14 20:00] VITALS: BP 129/54
--- NOTE | 2022-03-14 20:15 | NUR ---
MS RN OPENING NOTE RECEIVED PT AWAKE IN BED. A/O X4 AND ABLE TO MAKE NEEDS KNOWN. PT STABLE ON ROOM AIR. NO SOB OR S/S OF RESPIRATORY DISTRESS. BREATHING EVEN AND UNLABORED. IV ACCESS RFA 20G, INTACT AND PATENT, RUNNING D5NS WITH KCL 10 MEQ @ 75 ML/HR. SAFETY PRECAUTIONS IN PLACE. BED IN LOWEST LOCKED POSITION, HOB ELEVATED, SIDE RAILS UP X2, AND CALL LIGHT AND TABLE WITHIN REACH. ALL NEEDS MET AT THIS TIME.
[2022-03-14] MEDS ORDERED: TRAZODONE 50 MG TABLET PO SCH (22:00)
[2022-03-14] MEDS ORDERED: ropiniROLE 0.5 MG TABLET PO SCH (22:00)
[2022-03-15] MEDS: PIPERACILLIN /TAZOBACTAM 3.375 G in IV D5W 100 ML IV SCH ×2 (05:14→13:54)
[2022-03-15 06:25] LABS: BASOPHILS % (AUTO) 0.4 % (0.0-2.0); EOSINOPHILS % (AUTO) 4.3 % (0.0-6.0); HEMATOCRIT 35 % (33-45); HEMOGLOBIN 11.8 g/dL (11.5-14.8); LYMPHOCYTES % (AUTO) 34.4 % (20.0-44.0); MEAN CORPUSCULAR HGB CONC 34 g/dl (31.0-36.0); MEAN CORPUSCULAR VOLUME 82 fL (82-100); MONOCYTES # (AUTO) 0.5 K/uL (0.1-1.30); MONOCYTES % (AUTO) 8.6 % (2.0-12.0); NEUTROPHILS # (AUTO) 3.1 K/uL (1.8-8.9); NEUTROPHILS % (AUTO) 52.3 % (43.0-81.0); PLATELET COUNT (AUTO) 207 K/uL (150-450); RED BLOOD CELL COUNT(AUTO) 4.29 MIL/uL (4.0-5.2); WHITE BLOOD COUNT (AUTO) 5.9 K/uL (4.3-11.0)
--- NOTE | 2022-03-15 06:48 | NUR ---
MS RN CLOSING NOTE PT AWAKE IN BED. A/O X4 AND ABLE TO MAKE NEEDS KNOWN. PT STABLE ON ROOM AIR. NO SOB OR S/S OF RESPIRATORY DISTRESS. BREATHING EVEN AND UNLABORED. IV ACCESS RFA 20G, INTACT AND PATENT, RUNNING ZOSYN @ 25 ML/HR. ALL DUE MEDS GIVEN ORDERED. SAFETY PRECAUTIONS IN PLACE AT ALL TIMES. BED IN LOWEST LOCKED POSITION, HOB ELEVATED, SIDE RAILS UP X2, AND CALL LIGHT AND TABLE WITHIN REACH. ALL NEEDS MET AT THIS TIME AND WILL ENDORSE TO ONCOMING NURSE FOR CLIFFORD.
[2022-03-15] MEDS ORDERED: METR500T PO (07:19)
[2022-03-15] MEDS ORDERED: LEVO500T90 PO (07:19)
[2022-03-15 07:27] LABS: CALCIUM, SERUM 8.3 mg/dL (8.5-10.1); CARBON DIOXIDE 24 mmol/L (21-32)
--- NOTE | 2022-03-15 07:30 | NUR ---
MS RN OPENING NOTE RECEIVED PATIENT AWAKE ON BED AND A/O X4. ABLE TO MAKE NEEDS KNOWN. ON ROOM AIR TOLERATING WELL. NO SOB OR S/S OF RESPIRATORY DISTRESS. BREATHING EVEN AND UNLABORED. WITH IV ACCESS ON RIGHT FOREARM 20G, INTACT AND PATENT, WITH IVF D5NS WITH KCL 10 MEQ @ 75 ML/HR INFUSING WELL. SAFETY MEASURES IN PLACED. BED IN LOWEST LOCKED POSITION, HOB ELEVATED, SIDE RAILS UP X2, AND CALL LIGHT AND TABLE WITHIN REACH. WILL CONTINUE TO MONITOR.
--- NOTE | 2022-03-15 07:30 | NUR ---
MS NIKHIL OPENING NOTE RECEIVED PATIENT AWAKE ON BED AND A/O X4. ABLE TO MAKE NEEDS KNOWN. ON ROOM AIR TOLERATING WELL. NO SOB OR S/S OF RESPIRATORY DISTRESS. BREATHING EVEN AND UNLABORED. WITH IV ACCESS ON LEFT FOREARM 2G22 AND AT THE RIGHT WRIST G20 WITH IVF NS AT 100ML/HR INFUSING WELL, INTACT AND PATENT. SAFETY MEASURES IN PLACED. BED IN LOWEST LOCKED POSITION, HOB ELEVATED, SIDE RAILS UP X2, AND CALL LIGHT AND TABLE WITHIN REACH. WILL CONTINUE TO MONITOR. Addendum: 03/15/22 at 1032 by PERNELL SARABIA RN ERROR. DOCUMENTED ON WRONG PATIENT.
[2022-03-15 08:36] VITALS: BP 139/67
[2022-03-15 08:47] LABS: CHLORIDE 111 mmol/L (98-107); GLUCOSE 100 mg/dL (74-106); POTASSIUM 3.6 mmol/L (3.5-5.1); SODIUM SERUM 142 mmol/L (136-145); UREA NITROGEN, BLOOD 12 mg/dL (7-18)
[2022-03-15] MEDS: PANTOPRAZOLE 40 MG TABLET.DR PO SCH (09:06)
[2022-03-15] MEDS: BENAZEPRIL HCL 10 MG TABLET PO SCH (09:08)
[2022-03-15] MEDS: MELOXICAM 7.5 MG TABLET PO SCH (09:56)
[2022-03-15] MEDS: MAGNESIUM OXIDE 400 MG TABLET PO SCH (09:56)
[2022-03-15] MEDS: IV D5/ NS 10 MEQ KCL 1000 ML IV SCH ×2 (12:48)
--- NOTE | 2022-03-15 15:45 | NUR ---
MS ATHLETIC TRAINER NOTES PATIENT WAS ORDERED BY DR. CASILLAS FOR DISCHARGE TO HOME. DISCHARGE INSTRUCTION AND HOME MEDS EDUCATION PROVIDED. PATIENT VERBALIZED UNDERSTANDING. DISCHARGE FORM AND BELONGINGS LIST FORM SIGNED BY PATIENT. IV LINE AND NAME WRIST BAND REMOVED. PATIENT WAS PICKED UP BY DAUGHTER, HELENA. ACCOMPANIED TO THE [facility] AND LEFT IN STABLE CONDITION VIA PRIVATE CAR. MD AND CHARGE NURSE ARE AWARE OF THE DISCHARGE.
[2022-03-15 16:36] VITALS: BP 137/52
== END 2022-03-15 16:38 | disposition home or self-care (01) | DRG 392 ==
LOC: ER 19:15 → MED 03-14 07:44
PROVIDERS: ADMIT Internal Medicine; ATTEND Internal Medicine
DX: K57.32 Diverticulitis of large intestine without perforation or abscess without bleeding (principal); N39.0 Urinary tract infection, site not specified; K56.7 Ileus, unspecified; I10 Essential (primary) hypertension; Z20.822 Contact with and (suspected) exposure to COVID-19; K43.9 Ventral hernia without obstruction or gangrene; K40.90 Unilateral inguinal hernia, without obstruction or gangrene, not specified as recurrent; Z90.49 Acquired absence of other specified parts of digestive tract; Z79.899 Other long term (current) drug therapy; K52.9 Noninfective gastroenteritis and colitis, unspecified; I71.21 Aneurysm of the ascending aorta, without rupture
CPT/HCPCS: 36415; 74018; 80048-TC; 80076-TC; 81001; 83690-TC; 83735-TC; 84484-TC; 85025-TC; 85730-TC; 87081-TC; 87086-TC; C9803; G0378; J2543; J3480; J7030; J7042; J7060

== ENCOUNTER 2023-10-04 10:37 | Emergency (ER) | payer OTHER ==
[~2023-10-04] VITALS: Ht 152.4 cm; Wt 52.2 kg
[~2023-10-04 10:37] MED LIST changes: -AMLO1CAP92 PO; +BENA20TA9 PO; -DIAZ5TAB4 PO; -DIPH25CA83 PO; +LEVO500T90 PO; +MAGN400T8 PO; +MELO-105 PO; +METR500T PO; -PROP15DR EACHEYE; +ROPI0.255 PO; +TRAZ-182 PO
[2023-10-04 10:44] VITALS: BP 138/71; TEMP 98.7
[2023-10-04] MEDS ORDERED: NITR100C6 PO (10:59)
[2023-10-04] MEDS: NITROFURANTOIN/MONOHYDRATE MACROCRYSTALS 100 MG CAPSULE PO ONE (11:02)
[2023-10-04] MEDS ORDERED: NITROFURANTOIN/MONOHYDRATE MACROCRYSTALS 100 MG CAPSULE ONE (11:02)
[2023-10-04 11:04] LABS: APPEARANCE,URINE CLOUDY (CLEAR); BILIRUBIN,URINE NEGATIVE (NEGATIVE); BLOOD, URINE 1+ Ery/uL (NEGATIVE); COLOR,URINE YELLOW (YELLOW); KETONES,URINE NEGATIVE (NEGATIVE); LEUKOCYTE ESTERASE ,URINE 3+ (NEGATIVE); NITRITE, URINE NEGATIVE (NEGATIVE); PROTEIN,URINE TRACE mg/dl (NEGATIVE); UGLUCOSE NEGATIVE (NEGATIVE); UROBILINOGEN,URINE 0.2 EU/dL (0.2)
[2023-10-04 11:14] LABS: WBC,URINE 21-50 /HPF (0-3)
[2023-10-04 11:15] LABS: ADD URINE CULTURE YES; BACTERIA,URINE 2+ /HPF (None Seen)
[2023-10-04 11:16] VITALS: O2SAT 100
== END 2023-10-04 11:17 | disposition home or self-care (01) ==
LOC: ER 11:00
DX: N39.0 Urinary tract infection, site not specified (principal); I10 Essential (primary) hypertension; Z98.890 Other specified postprocedural states; Z79.899 Other long term (current) drug therapy; Z60.2 Problems related to living alone
CPT/HCPCS: 81001; 87086-TC

== ENCOUNTER 2024-02-02 16:43 | Emergency (ER) | payer OTHER ==
[~2024-02-02] VITALS: Ht 167.6 cm; Wt 51.3 kg
[~2024-02-02 16:43] MED LIST changes: +NITR100C6 PO
[2024-02-02 17:24] LABS: BASOPHILS % (AUTO) 0.7 % (0.0-2.0); EOSINOPHILS # (AUTO) 0.1 K/uL (0.0-0.7); EOSINOPHILS % (AUTO) 2.2 % (0.0-6.0); HEMATOCRIT 40 % (33-45); HEMOGLOBIN 13.3 g/dL (11.5-14.8); LYMPHOCYTES # (AUTO) 2.5 K/uL (0.8-4.8); MEAN CORPUSCULAR HEMOGLOBIN 28 PG (26.0-33.0); MEAN CORPUSCULAR HGB CONC 34 g/dl (31.0-36.0); MEAN CORPUSCULAR VOLUME 83 fL (82-100); MONOCYTES # (AUTO) 0.5 K/uL (0.1-1.30); MONOCYTES % (AUTO) 7.2 % (2.0-12.0); NEUTROPHILS # (AUTO) 3.6 K/uL (1.8-8.9); NEUTROPHILS % (AUTO) 52.9 % (43.0-81.0); PLATELET COUNT (AUTO) 244 K/uL (150-450); RED BLOOD CELL COUNT(AUTO) 4.77 MIL/uL (4.0-5.2); RED CELL DISTRIBUTION WIDTH 15.6 % (11.5-15.0); WHITE BLOOD COUNT (AUTO) 6.9 K/uL (4.3-11.0)
[2024-02-02 17:34] LABS: INR 1.04 (0.91-1.10); PARTIAL THROMBOPLASTIN TIME 24.1 SEC (24.3-34.3); PROTHROMBIN TIME 10.7 SECS (9.2-11.1)
[2024-02-02 17:38] LABS: CALCIUM, SERUM 9.1 mg/dL (8.5-10.1); CARBON DIOXIDE 27 mmol/L (21-32); CHLORIDE 108 mmol/L (98-107); GLUCOSE 111 mg/dL (74-106); SODIUM SERUM 140 mmol/L (136-145); UREA NITROGEN, BLOOD 22 mg/dL (7-18)
[2024-02-02 18:31] VITALS: BP 148/80; TEMP 98.3; O2SAT 97
== END 2024-02-02 18:31 | disposition home or self-care (01) ==
LOC: ER 16:48
DX: I83.91 Asymptomatic varicose veins of right lower extremity (principal); M79.661 Pain in right lower leg; I10 Essential (primary) hypertension; Z79.1 Long term (current) use of non-steroidal anti-inflammatories (NSAID); Z90.49 Acquired absence of other specified parts of digestive tract; Z60.2 Problems related to living alone; Z86.79 Personal history of other diseases of the circulatory system; Z87.19 Personal history of other diseases of the digestive system
CPT/HCPCS: 36415; 80048-TC; 85025-TC; 85730-TC; 93971-TC

== ENCOUNTER 2024-08-03 08:42 | Emergency (ER) | payer OTHER ==
[~2024-08-03] VITALS: Ht 152.4 cm; Wt 54.4 kg
[2024-08-03 09:36] LABS: APPEARANCE,URINE CLEAR (CLEAR); BILIRUBIN,URINE NEGATIVE (NEGATIVE); BLOOD, URINE NEGATIVE Ery/uL (NEGATIVE); COLOR,URINE YELLOW (YELLOW); KETONES,URINE NEGATIVE (NEGATIVE); LEUKOCYTE ESTERASE ,URINE 2+ (NEGATIVE); NITRITE, URINE NEGATIVE (NEGATIVE); PROTEIN,URINE NEGATIVE (NEGATIVE); UGLUCOSE NEGATIVE (NEGATIVE); UROBILINOGEN,URINE 0.2 EU/dL (0.2)
[2024-08-03 09:43] LABS: ADD URINE CULTURE YES; BACTERIA,URINE Few /HPF (None Seen); RBC,URINE 0-2 /HPF (0-2)
[2024-08-03] MEDS ORDERED: PANTOPRAZOLE 40 MG VIAL ONE (09:44)
[2024-08-03] MEDS ORDERED: ONDANSETRON HCL/PF 4 MG/2 ML VIAL ONE (09:45)
[2024-08-03 09:53] LABS: CARBON DIOXIDE 27 mmol/L (21-32); CHLORIDE 107 mmol/L (98-107); CREATININE 1.1 mg/dL (0.6-1.3); GLUCOSE 99 mg/dL (74-106); POTASSIUM 4.7 mmol/L (3.5-5.1); SODIUM SERUM 137 mmol/L (136-145); UREA NITROGEN, BLOOD 24 mg/dL (7-18)
[2024-08-03] MEDS: ONDANSETRON HCL/PF 4 MG/2 ML VIAL IVP ONE (09:53)
[2024-08-03] MEDS: IV NS 0.9% 1,000 ML BAG IV ONE (09:53)
[2024-08-03] MEDS: PANTOPRAZOLE 40 MG VIAL IV ONE (09:53)
[2024-08-03 09:55] LABS: BASOPHILS % (AUTO) 0.4 % (0.0-2.0); EOSINOPHILS # (AUTO) 0.2 K/uL (0.0-0.7); EOSINOPHILS % (AUTO) 2.5 % (0.0-6.0); HEMATOCRIT 41 % (33-45); LYMPHOCYTES # (AUTO) 2.2 K/uL (0.8-4.8); LYMPHOCYTES % (AUTO) 30.8 % (20.0-44.0); MEAN CORPUSCULAR HEMOGLOBIN 28 PG (26.0-33.0); MEAN CORPUSCULAR HGB CONC 34 g/dl (31.0-36.0); MEAN CORPUSCULAR VOLUME 80 fL (82-100); MONOCYTES # (AUTO) 0.5 K/uL (0.1-1.30); MONOCYTES % (AUTO) 6.5 % (2.0-12.0); NEUTROPHILS # (AUTO) 4.3 K/uL (1.8-8.9); NEUTROPHILS % (AUTO) 59.8 % (43.0-81.0); PLATELET COUNT (AUTO) 259 K/uL (150-450); RED BLOOD CELL COUNT(AUTO) 5.07 MIL/uL (4.0-5.2); RED CELL DISTRIBUTION WIDTH 15.3 % (11.5-15.0); WHITE BLOOD COUNT (AUTO) 7.2 K/uL (4.3-11.0)
[2024-08-03 09:59] LABS: ALANINE AMINOTRANSFERASE 19 U/L (12-78); ALBUMIN 3.8 g/dL (3.4-5.0); ALKALINE PHOSPHATASE 72 U/L (46-116); ASPARTATE AMINOTRANSFERASE 15 U/L (15-37); BILIRUBIN,DIRECT 0.2 mg/dL (0.0-0.2); BILIRUBIN,TOTAL 0.9 mg/dL (0.2-1.0); LIPASE 45 U/L (16-77); TOTAL PROTEIN, SERUM 6.4 g/dL (6.4-8.2)
[2024-08-03 10:02] LABS: INR 1.04 (0.91-1.10); PARTIAL THROMBOPLASTIN TIME 26.8 SEC (24.3-34.3)
[2024-08-03] MEDS ORDERED: CEFTRIAXONE 1GM BAG (ER ONLY) 50 ML IV ONE (10:02)
[2024-08-03] MEDS: CEFTRIAXONE 1GM BAG (ER ONLY) 1 GM/50 ML PIGGYBACK IV ONE (10:19)
[2024-08-03] MEDS ORDERED: LACT10SO69 PO (10:55)
[2024-08-03] MEDS ORDERED: CEPH-570 PO (10:55)
[2024-08-03 11:13] VITALS: BP 135/75; TEMP 98.1; O2SAT 99
== END 2024-08-03 11:14 | disposition home or self-care (01) ==
LOC: ER 08:46
DX: K43.9 Ventral hernia without obstruction or gangrene (principal); N39.0 Urinary tract infection, site not specified; E86.0 Dehydration; I10 Essential (primary) hypertension; I25.10 Atherosclerotic heart disease of native coronary artery without angina pectoris; Z79.1 Long term (current) use of non-steroidal anti-inflammatories (NSAID); Z90.49 Acquired absence of other specified parts of digestive tract; Z79.899 Other long term (current) drug therapy; Z60.2 Problems related to living alone
CPT/HCPCS: 99285; 74176; 96374; 96375; 71045; 93005; 85025; 80048; 87086; 83690; 80076; 81001; 36415; 85730; J2405; J7030; J2470; J0696

== ENCOUNTER 2024-10-25 10:10 | Emergency (ER) | payer OTHER ==
[~2024-10-25] VITALS: Ht 152.4 cm; Wt 54.4 kg
[~2024-10-25 10:10] MED LIST changes: +CEPH-570 PO; +LACT10SO69 PO
[2024-10-25 10:15] VITALS: BP 152/126; TEMP 98.3
[2024-10-25] MEDS ORDERED: NAPROXEN 250 MG TABLET ONE (11:14)
[2024-10-25] MEDS: NAPROXEN 250 MG TABLET PO ONE (11:24)
[2024-10-25] MEDS ORDERED: NAPR-1192 PO (12:35)
[2024-10-25] MEDS ORDERED: ACET325T53 PO (12:35)
[2024-10-25 12:43] VITALS: O2SAT 98
== END 2024-10-25 12:45 | disposition home or self-care (01) ==
LOC: ER 10:12
DX: M25.461 Effusion, right knee (principal); M17.11 Unilateral primary osteoarthritis, right knee; M10.9 Gout, unspecified; M06.9 Rheumatoid arthritis, unspecified; I10 Essential (primary) hypertension; Z79.1 Long term (current) use of non-steroidal anti-inflammatories (NSAID); Z90.49 Acquired absence of other specified parts of digestive tract; Z79.899 Other long term (current) drug therapy; Z60.2 Problems related to living alone
CPT/HCPCS: 73564-TC

== ENCOUNTER 2025-01-30 09:54 | Emergency (ER) | payer OTHER ==
[~2025-01-30] VITALS: Ht 152.4 cm; Wt 54.4 kg
[~2025-01-30 09:54] MED LIST changes: +ACET325T53 PO; +NAPR-1192 PO
[2025-01-30 10:09] VITALS: BP 117/54; TEMP 98; O2SAT 95
[2025-01-30] MEDS ORDERED: LIDOCAINE 1%-EPI 1:100,000 20 ML VIAL ONE (10:23)
[2025-01-30] MEDS: LIDOCAINE 1%-EPI 1:100,000 20 ML VIAL TP ONE (10:25)
[2025-01-30] MEDS ORDERED: CEPH500T PO (11:08)
[2025-01-30] MEDS ORDERED: SULF1TAB48 PO (11:08)
== END 2025-01-30 11:19 | disposition home or self-care (01) ==
LOC: ER 09:54
DX: L02.212 Cutaneous abscess of back [any part, except buttock and flank] (principal); I11.9 Hypertensive heart disease without heart failure; Z79.1 Long term (current) use of non-steroidal anti-inflammatories (NSAID); Z90.49 Acquired absence of other specified parts of digestive tract; Z60.2 Problems related to living alone; Z79.899 Other long term (current) drug therapy
CPT/HCPCS: 99284; 10060; J3490